=== PATIENT | female | born 1970 | race Caucasian/White ===

== ENCOUNTER 2020-11-17 20:45 | Emergency (ER) | payer OTHER ==
[2020-11-17 20:52] VITALS: BP 143/100; PULSE 70; RESP 19; TEMP 98.4
--- NOTE | 2020-11-17 21:17 | ED ---
Fall HPI - General Chief Complaint: Fall Stated Complaint: trip & fall/head injury Time Seen by Provider: 11/17/20 20:56 Source: patient Mode of arrival: ambulatory - History of Present Illness Initial Comments: Is a 42-year-old female who presents or urgency department for left-sided head trauma. The patient states that she was walking this morning on her concrete and tripped and fell and hit her head on the concrete. She states that she did not lose consciousness. She was able to get up but noticed that she had a significant bump on the left side of her face. She states that she tried icing it throughout the day however continued to have worsening swelling to the point that her eyelid was getting so swollen she cannot open her eyes anymore. She decided come emergency department for evaluation. She states that she did not have any direct trauma to the eye. She states that she did not lose consciousness. She did low bit of nausea throughout the day however no vomiting. She does admit to a laceration of her lip as well after the fall. She states that he'll have any preceding symptoms. No sick be. She denies any drinking or drug use. No other complaints or injuries. - Related Data Allergies Allergy/AdvReac Type Severity Reaction Status Date / Time amoxicillin Allergy Nausea & Verified 11/17/20 20:52 Vomiting Review of Systems ROS Statement: Those systems with pertinent positive or pertinent negative responses have been documented in the HPI. ROS Other: All systems not noted in ROS Statement are negative. Past Medical History Past Medical History: Thyroid Disorder Additional Past Medical History / Comment(s): Grave's disease History of Any Multi-Drug Resistant Organisms: None Reported Past Surgical History: Orthopedic Surgery Additional Past Surgical History / Comment(s): left knee surgery Past Psychological History: Anxiety Smoking Status: Current every day smoker Past Alcohol Use History: None Reported Past Drug Use History: None Reported General Exam - General Exam Comments Initial Comments: Constitutional: Awake alert Appears comfortable Head: Normocephalic There is a small laceration to the L side of the upper lip. Not through and through. Eyes: no conjunctival injection No scleral icterus EOMI IOP 20 in L eye. significant periorbital hematoma however conjuncitva is normal. No chemosis. EOMI. Neck: No JVD Supple Heart: Regular rate rhythm normal S1-S2 no murmurs Lungs: Clear to auscultation bilaterally No wheezing No rales Abdomen: Soft nondistended nontender Extremities: Non edematous DP pulses intact Radial pulses intact Neuro: A&Ox3 No focal neurologic deficits Psych: Appropriate mood and affect Limitations: no limitations Course Vital Signs 11/17/20 20:47 Temperature 98.4 F Pulse Rate 70 Respiratory 19 Rate Blood Pressure 143/100 O2 Sat by Pulse 99 Oximetry Medical Decision Making - Medical Decision Making Is a 50-year-old female who presents emergency department for left I pain and swelling. Patient was evaluated and found to have a significant left periorbital hematoma. Examination of the eye was difficult however the eye did appear normal. There is no chemosis. No conjunctival injection. I pressure was normal. CT of the orbit was obtained which didn't show any evidence for retrobulbar hematoma. No orbital fractures. The patient was able to see out of the left eye however it was blurry because of tearing in because it was difficult to keep it open. I recommend the patient continue with Tylenol for pain control. She is follow up with ophthalmology for reevaluation in a few days. Return emergency Department if there is worsening swelling, pain, headache, nausea, vomiting, or any other complaints. Disposition Clinical Impression: Periorbital hematoma Disposition: HOME SELF-CARE Condition: Stable Instructions (If sedation given, give patient instructions): Black Eye (ED), Fall Prevention (ED) Is patient prescribed a controlled substance at d/c from ED?: No Referrals: Raghu Cha MD [STAFF PHYSICIAN] - 1-2 days
--- NOTE | 2020-11-17 21:31 | CT ---
EXAMINATION TYPE: CT brain wo con DATE OF EXAM: 11/17/2020 COMPARISON: None HISTORY: Fall, left orbital swelling and bruising. CT DLP: 1292.4 mGycm Automated exposure control for dose reduction was used. Ventricles have normal size. There is no mass effect nor midline shift. There is no sign of intracran ial hemorrhage. There is large left side periorbital hematoma. This measures up to almost 2 cm in thi ckness. Hematoma extends over the left frontal bone. The calvarium is intact. IMPRESSION: No acute intracranial abnormality. Large left side periorbital hematoma.
--- NOTE | 2020-11-17 21:39 | CT ---
EXAMINATION TYPE: CT facial bones wo con DATE OF EXAM: 11/17/2020 COMPARISON: None HISTORY: Fall, left orbital swelling and bruising. CT DLP: mGycm Automated exposure control for dose reduction was used. Images were obtained from the bottom of the mandible to the top of the frontal sinuses without contra st. The mandibular ring is intact. Temporomandibular joints appear normal. The maxilla is intact. Zygomat ic arches appear normal. There is no evidence of a blowout fracture. There is fairly normal aeration of the paranasal sinuses. There is significant periorbital left side soft tissue swelling with high attenuation and consistent with large hematoma. This measures up to 2 cm in thickness. The globes are symmetric. There is no ely dence of retro-orbital mass. Nasal bone appears intact. There is normal aeration of the mastoid sinus es. IMPRESSION: No fracture seen. Large left side periorbital hematoma and soft tissue swelling.
== END 2020-11-17 22:00 | disposition home or self-care (01) ==
LOC: EC 20:45
DX: S00.12XA Contusion of left eyelid and periocular area, initial encounter (principal); F17.200 Nicotine dependence, unspecified, uncomplicated; Z88.0 Allergy status to penicillin; W01.198A Fall on same level from slipping, tripping and stumbling with subsequent striking against other object, initial encounter; Y93.01 Activity, walking, marching and hiking
CPT/HCPCS: 70450; 70486; 99283